=== PATIENT | female | born 1955 | race Caucasian/White ===

== ENCOUNTER 2022-03-23 15:55 | Emergency (ER) | payer OTHER ==
[~2022-03-23] VITALS: Ht 162.6 cm; Wt 79.4 kg
[2022-03-23] MEDS ORDERED: AMLO-212 PO (16:18)
[2022-03-23] MEDS ORDERED: ROSU20TA2 PO (16:18)
[2022-03-23] MEDS ORDERED: METO25TA6 PO (16:18)
[2022-03-23] MEDS ORDERED: DABI150C PO (16:18)
[2022-03-23 16:24] LABS: HEMATOCRIT 35.8 % (31.2-41.9); MEAN CORPUSCULAR HEMOGLOBIN 26.4 uug (24.7-32.8); MEAN CORPUSCULAR VOLUME 78.6 fL (75.5-95.3); PLATELET COUNT (AUTO) 279 K/uL (179-408)
[2022-03-23 16:31] LABS: CARBON DIOXIDE 26 mmol/L (21-32); CHLORIDE 98 mmol/L (98-107); CREATININE 0.7 mg/dL (0.6-1.3); GLUCOSE 110 mg/dL (74-106); POTASSIUM 3.5 mmol/L (3.5-5.1); UREA NITROGEN, BLOOD 14 mg/dL (7-18)
[2022-03-23 16:44] LABS: ALANINE AMINOTRANSFERASE 7 U/L (14-59); ALKALINE PHOSPHATASE 51 U/L (50-136); ASPARTATE AMINOTRANSFERASE 7 U/L (15-37); BILIRUBIN,DIRECT 0.1 mg/dL (0.0-0.2); BILIRUBIN,TOTAL 0.4 mg/dL (0.2-1.0)
[2022-03-23] MEDS ORDERED: MAG HYDROX/AL HYDROX/SIMETH 30 ML LIQUID UDC PO ONE (20:30)
[2022-03-23] MEDS ORDERED: FAMOTIDINE 20 MG TABLET PO ONE (20:30)
[2022-03-23] MEDS ORDERED: MAG HYDROX/AL HYDROX/SIMETH 30 ML LIQUID UDC ONE (20:46)
[2022-03-23] MEDS ORDERED: FAMOTIDINE 20 MG TABLET ONE (20:46)
--- NOTE | 2022-03-23 21:47 | NUR ---
Patient discharged to home in stable condition. Written and verbal after care instructions given. Patient verbalizes understanding of instructions. Stressed follow up or return to ER for worsening s/s. pt ambulated with steady gait. denies pain. AOx4 no chest pain. no SOB
[2022-03-23 21:48] VITALS: BP 115/70
== END 2022-03-23 21:48 | disposition home or self-care (01) ==
LOC: ER 15:57
DX: R07.89 Other chest pain (principal); I48.91 Unspecified atrial fibrillation; Z79.02 Long term (current) use of antithrombotics/antiplatelets; Z79.899 Other long term (current) drug therapy; I10 Essential (primary) hypertension; Z20.822 Contact with and (suspected) exposure to COVID-19
CPT/HCPCS: 36415; 71045; 83690; 84484; 85025; 85730; 93005; A4663

== ENCOUNTER 2024-04-30 12:56 | Emergency (ER) | payer OTHER ==
[~2024-04-30] VITALS: Ht 162.6 cm; Wt 70.8 kg
[~2024-04-30 12:56] MED LIST: AMLO-212 PO; DABI150C PO; METO25TA6 PO; ROSU20TA2 PO
[2024-04-30 13:32] LABS: BASOPHILS % (AUTO) 0.3 % (0.0-2.0); EOSINOPHILS % (AUTO) 0.3 % (0.0-7.0); HEMATOCRIT 40.3 % (31.2-41.9); HEMOGLOBIN 13.1 g/dL (10.9-14.3); LYMPHOCYTES % (AUTO) 14.4 % (20.5-51.5); MEAN CORPUSCULAR HEMOGLOBIN 26.5 uug (24.7-32.8); MEAN CORPUSCULAR HGB CONC 33 g/dL (32.3-35.6); MEAN CORPUSCULAR VOLUME 81.4 fL (75.5-95.3); MONOCYTES # (AUTO) 0.4 K/uL (0.1-1.30); MONOCYTES % (AUTO) 5.2 % (0.0-11.0); NEUTROPHILS # (AUTO) 5.5 K/uL (1.8-8.9); NEUTROPHILS % (AUTO) 79.8 % (38.5-71.5); PLATELET COUNT (AUTO) 302 K/uL (179-408); RED BLOOD CELL COUNT(AUTO) 4.94 MIL/uL (3.63-4.92); RED CELL DISTRIBUTION WIDTH 14.9 % (12.3-17.7); WHITE BLOOD COUNT (AUTO) 6.9 K/uL (3.8-11.8)
[2024-04-30] MEDS ORDERED: MAGNESIUM SULFATE/D5W 100 ML ONE ×2 (13:37→13:52)
[2024-04-30 13:38] LABS: CALCIUM 9.2 mg/dL (8.5-10.1); CARBON DIOXIDE 26 mmol/L (21-32); CHLORIDE 98 mmol/L (98-107); GLUCOSE 152 mg/dL (74-106); POTASSIUM 3.8 mmol/L (3.5-5.1); SODIUM SERUM 135 mmol/L (136-145); UREA NITROGEN, BLOOD 12 mg/dL (7-18)
[2024-04-30 13:42] LABS: DIFFERENTIAL COMMENT 1
[2024-04-30] MEDS: MAGNESIUM SULFATE/D5W 100 ML IV ONE (13:49)
[2024-04-30] MEDS: IV NORMAL SALINE 500 ML BAG IV ONE (13:49)
[2024-04-30 13:52] LABS: ALANINE AMINOTRANSFERASE 21 U/L (14-59); ALKALINE PHOSPHATASE 75 U/L (50-136); ASPARTATE AMINOTRANSFERASE 12 U/L (15-37); BILIRUBIN,DIRECT 0.2 mg/dL (0.0-0.2); BILIRUBIN,TOTAL 0.5 mg/dL (0.2-1.0); NT-PRO BNP 741 pg/mL (0-125); TOTAL PROTEIN, SERUM 8.1 g/dL (6.4-8.2)
[2024-04-30] MEDS ORDERED: METOPROLOL TARTRATE 50 MG TABLET ONE (15:56)
[2024-04-30] MEDS: METOPROLOL TARTRATE 50 MG TABLET PO ONE (16:01)
[2024-04-30 19:05] VITALS: BP 125/69; O2SAT 99
== END 2024-04-30 19:05 | disposition home or self-care (01) ==
LOC: ER 12:56
DX: I49.2 Junctional premature depolarization (principal); R00.2 Palpitations; I48.91 Unspecified atrial fibrillation; Z79.899 Other long term (current) drug therapy
CPT/HCPCS: 99285; 96365; 71045; 96366; 80076; 80048; 83880; 83735; 85025; 85379; 85730; 84484 ×2; 36415; 93005; J3475 ×2; J7040; A4606; A4663